=== PATIENT | female | born 1945 | race Caucasian/White ===

== ENCOUNTER 2019-04-03 16:36 | Inpatient (IN) | payer OTHER ==
[~2019-04-03] VITALS: Ht 157.5 cm; Wt 46.7 kg
[~2019-04-03 16:36] MED LIST: IBUP-786 PO; NORCO5 PO; OMEP10CA4; ZOCOR
[2019-04-03 16:52] VITALS: BP_SYST 151
[2019-04-03] MEDS ORDERED: NACL 0.9% 1,500 ML IV ONE (17:30)
[2019-04-03] MEDS ORDERED: ONDANSETRON HCL 4 MG/2 ML VIAL IVP ONE (17:45)
[2019-04-03] MEDS ORDERED: MORPHINE 4 MG/ML INJ. SYRINGE IVP ONE (17:45)
[2019-04-03] MEDS ORDERED: LORazepam 2 MG/ML VIAL (FOR ER USE) IVP ONE (17:45)
[2019-04-03 18:19] LABS: BASOPHILS # (AUTO) 0.1 K/uL (0.0-0.2); BASOPHILS % (AUTO) 0.5 % (0.0-2.0); EOSINOPHILS % (AUTO) 0.1 % (0.0-4.0); HEMOGLOBIN 12.7 g/dL (12.0-16.0); LYMPHOCYTES # (AUTO) 1.3 K/uL (1.0-5.5); LYMPHOCYTES % (AUTO) 10.3 % (20.5-51.5); MEAN CORPUSCULAR HEMOGLOBIN 31 pg (27-31); MEAN CORPUSCULAR HGB CONC 33 % (32-36); MEAN CORPUSCULAR VOLUME 93 fL (79.0-98.0); MONOCYTES # (AUTO) 0.9 K/uL (0.0-1.0); MONOCYTES % (AUTO) 7.1 % (1.7-9.3); PLATELET COUNT (AUTO) 294 K/uL (130-430); RED BLOOD CELL COUNT(AUTO) 4.17 MIL/uL (4.2-6.2); RED CELL DISTRIBUTION WIDTH 14.4 % (9.0-15.0); WHITE BLOOD COUNT (AUTO) 12.2 K/uL (4.8-10.8)
[2019-04-03 18:28] LABS: ANION GAP 13 (5-15); CALCIUM 9.9 mg/dL (8.4-11.0); CHLORIDE 98 mmol/L (98-107); CREATININE 1.16 mg/dL (0.55-1.30); GLUCOSE 113 mg/dL (70-99); POTASSIUM 3.6 mmol/L (3.5-5.1); SODIUM SERUM 131 mmol/L (136-145); UREA NITROGEN, BLOOD 15 mg/dL (8-21)
[2019-04-03 18:29] LABS: PROTHROMBIN TIME 10.7 SECS (9.5-12.5)
[2019-04-03 18:33] LABS: ALANINE AMINOTRANSFERASE 20 U/L (12-78); ALBUMIN 4.2 g/dL (3.4-4.8); ASPARTATE AMINOTRANSFERASE 19 U/L (10-37); TOTAL BILIRUBIN 0.4 mg/dL (0.0-1.0)
[2019-04-03] MEDS ORDERED: NACL 0.9% 500 ML IV ONE (19:15)
[2019-04-03] MEDS ORDERED: LEVOFLOXACIN 500 MG/D5W 100 ML IV ONE (19:15)
[2019-04-03] MEDS ORDERED: PIPERACILLIN/TAZO 3.375 GM in NS 50 ML IV ONE (19:15)
[2019-04-03] MEDS ORDERED: PIPERACILLIN/TAZOBACTAM 3.375 GM/VIAL (ZOSYN) IV ONE (19:33)
[2019-04-03] MEDS ORDERED: LORA2TAB95 PO (20:21)
[2019-04-03] MEDS ORDERED: OMEP40CA33 PO (20:21)
[2019-04-03] MEDS ORDERED: LIP20 PO (20:21)
[2019-04-03] MEDS ORDERED: TEMA15CA5 PO (20:21)
[2019-04-03 20:25] LABS: BILIRUBIN,URINE NEGATIVE (NEGATIVE); BLOOD, URINE NEGATIVE (NEGATIVE); CLARITY/URINE CLEAR (CLEAR); COLOR,URINE YELLOW (YELLOW); GLUCOSE,URINE NEGATIVE (NEGATIVE); KETONES,URINE NEGATIVE (NEGATIVE); LEUKOCYTE ESTERASE ,URINE NEGATIVE (NEGATIVE); NITRITE, URINE NEGATIVE (NEGATIVE); PH,URINE 7.5 (5.0-8.0); PROTEIN URINE NEGATIVE (NEGATIVE); UROBILINOGEN,URINE 0.2 (0.2-1.0)
[2019-04-03] MEDS: NACL 0.9% 1,000 ML IV SCH (21:20)
[2019-04-03] MEDS: LORazepam 1 MG TABLET PO SCH (21:20)
[2019-04-03 21:29] VITALS: BP_SYST 150
[2019-04-04 00:56] VITALS: BP_SYST 120
[2019-04-04] MEDS ORDERED: ACETAMINOPHEN 325 MG TABLET PO SCH (02:45)
[2019-04-04] MEDS: PANTOPRAZOLE SODIUM 40 MG TAB PO SCH (07:01)
[2019-04-04 08:02] VITALS: BP_SYST 133
[2019-04-04] MEDS: LORazepam 1 MG TABLET PO SCH ×2 (08:11→20:36)
[2019-04-04] MEDS: ATORVASTATIN 20 MG TABLET PO SCH (08:11)
[2019-04-04 08:59] LABS: BASOPHILS % (AUTO) 0.8 % (0.0-2.0); EOSINOPHILS % (AUTO) 0.6 % (0.0-4.0); HEMATOCRIT 34.8 % (36-48); HEMOGLOBIN 11.4 g/dL (12.0-16.0); LYMPHOCYTES # (AUTO) 1.3 K/uL (1.0-5.5); LYMPHOCYTES % (AUTO) 23.3 % (20.5-51.5); MEAN CORPUSCULAR HEMOGLOBIN 31 pg (27-31); MEAN CORPUSCULAR HGB CONC 33 % (32-36); MEAN CORPUSCULAR VOLUME 94 fL (79.0-98.0); MONOCYTES # (AUTO) 0.6 K/uL (0.0-1.0); NEUTROPHILS # (AUTO) 3.5 K/uL (1.8-7.7); NEUTROPHILS % (AUTO) 64.3 % (40.0-70.0); PLATELET COUNT (AUTO) 257 K/uL (130-430); RED BLOOD CELL COUNT(AUTO) 3.68 MIL/uL (4.2-6.2); RED CELL DISTRIBUTION WIDTH 14.6 % (9.0-15.0); WHITE BLOOD COUNT (AUTO) 5.4 K/uL (4.8-10.8)
[2019-04-04] MEDS ORDERED: OMEPRAZOLE 20 MG CAPSULE.DR (PriLOSEC) PO SCH (09:00)
[2019-04-04 09:10] LABS: ANION GAP 11 (5-15); CALCIUM 8.5 mg/dL (8.4-11.0); CHLORIDE 108 mmol/L (98-107); CREATININE 1.13 mg/dL (0.55-1.30); GLUCOSE 126 mg/dL (70-99); POTASSIUM 3.7 mmol/L (3.5-5.1); SODIUM SERUM 140 mmol/L (136-145); UREA NITROGEN, BLOOD 11 mg/dL (8-21)
[2019-04-04 09:17] LABS: ALANINE AMINOTRANSFERASE 19 U/L (12-78); ALBUMIN 3.2 g/dL (3.4-4.8); ASPARTATE AMINOTRANSFERASE 21 U/L (10-37); TOTAL BILIRUBIN 0.3 mg/dL (0.0-1.0)
[2019-04-04] MEDS: metroNIDAZOLE 500 mg/NS 100 ML IV SCH ×3 (09:20→20:47)
[2019-04-04] MEDS: NACL 0.9% 1,000 ML IV SCH (10:21)
[2019-04-04] MEDS: LEVOFLOXACIN 500 MG/D5W 100 ML IV SCH (10:21)
[2019-04-04 11:19] VITALS: BP_SYST 121
[2019-04-04] MEDS: ACETAMINOPHEN 325 MG TABLET PO PRN (15:22)
[2019-04-04 15:38] VITALS: BP_SYST 127
[2019-04-04] MEDS ORDERED: MORPHINE 2 MG/ML INJ. SYRINGE IVP PRN (17:00)
[2019-04-04 19:00] VITALS: BP_SYST 146
[2019-04-04] MEDS: ONDANSETRON HCL 4 MG/2 ML VIAL IVP PRN (20:38)
[2019-04-04] MEDS: TEMAZEPAM 15 MG CAPSULE PO SCH (20:38)
[2019-04-04] MEDS: MORPHINE 4 MG/ML INJ. SYRINGE IVP PRN (20:41)
[2019-04-05 00:24] VITALS: BP_SYST 143
[2019-04-05] MEDS ORDERED: LORazepam 2 MG/ML VIAL IVP SCH (00:30)
[2019-04-05] MEDS: MORPHINE 4 MG/ML INJ. SYRINGE IVP PRN ×2 (00:37→08:18)
[2019-04-05] MEDS: ONDANSETRON HCL 4 MG/2 ML VIAL IVP PRN ×4 (00:37→19:44)
[2019-04-05] MEDS: NACL 0.9% 1,000 ML IV SCH ×2 (00:51→14:45)
[2019-04-05] MEDS: metroNIDAZOLE 500 mg/NS 100 ML IV SCH ×3 (05:29→21:15)
[2019-04-05] MEDS: PANTOPRAZOLE SODIUM 40 MG TAB PO SCH (05:29)
[2019-04-05 08:06] VITALS: BP_SYST 121
[2019-04-05] MEDS: LEVOFLOXACIN 500 MG/D5W 100 ML IV SCH (08:17)
[2019-04-05] MEDS: ATORVASTATIN 20 MG TABLET PO SCH ×2 (08:22→08:24)
[2019-04-05] MEDS: LORazepam 1 MG TABLET PO SCH ×2 (08:22→20:39)
[2019-04-05] MEDS: HYDROcodone/ACETAMIN 5-325 MG TAB (NORCO/ VICODIN) PO PRN ×3 (15:40→23:45)
[2019-04-05 16:32] VITALS: BP_SYST 137
[2019-04-05] MEDS: ACETAMINOPHEN 325 MG TABLET PO PRN (16:37)
[2019-04-05] MEDS ORDERED: LORazepam 2 MG/ML VIAL IVP ONE (17:00)
[2019-04-05 20:00] VITALS: BP_SYST 135
[2019-04-05] MEDS: TEMAZEPAM 15 MG CAPSULE PO SCH (20:39)
[2019-04-06 00:27] VITALS: BP_SYST 132
[2019-04-06] MEDS: ONDANSETRON HCL 4 MG/2 ML VIAL IVP PRN ×2 (02:18→16:10)
[2019-04-06] MEDS: NACL 0.9% 1,000 ML IV SCH ×2 (03:50→20:36)
[2019-04-06] MEDS: HYDROcodone/ACETAMIN 5-325 MG TAB (NORCO/ VICODIN) PO PRN ×3 (03:50→14:58)
[2019-04-06] MEDS: metroNIDAZOLE 500 mg/NS 100 ML IV SCH ×3 (06:12→21:19)
[2019-04-06] MEDS: PANTOPRAZOLE SODIUM 40 MG TAB PO SCH (06:12)
[2019-04-06 06:54] LABS: BASOPHILS % (AUTO) 0.9 % (0.0-2.0); EOSINOPHILS # (AUTO) 0.1 K/uL (0.0-0.4); EOSINOPHILS % (AUTO) 1.1 % (0.0-4.0); HEMATOCRIT 30.4 % (36-48); LYMPHOCYTES # (AUTO) 1.7 K/uL (1.0-5.5); LYMPHOCYTES % (AUTO) 32.5 % (20.5-51.5); MEAN CORPUSCULAR HEMOGLOBIN 31 pg (27-31); MEAN CORPUSCULAR HGB CONC 33 % (32-36); MEAN CORPUSCULAR VOLUME 95 fL (79.0-98.0); MONOCYTES # (AUTO) 0.6 K/uL (0.0-1.0); MONOCYTES % (AUTO) 11.2 % (1.7-9.3); NEUTROPHILS # (AUTO) 2.8 K/uL (1.8-7.7); NEUTROPHILS % (AUTO) 54.3 % (40.0-70.0); PLATELET COUNT (AUTO) 220 K/uL (130-430); RED BLOOD CELL COUNT(AUTO) 3.21 MIL/uL (4.2-6.2); RED CELL DISTRIBUTION WIDTH 14.6 % (9.0-15.0); WHITE BLOOD COUNT (AUTO) 5.1 K/uL (4.8-10.8)
[2019-04-06 07:35] LABS: ANION GAP 7 (5-15); CHLORIDE 111 mmol/L (98-107); CREATININE 0.84 mg/dL (0.55-1.30); GLUCOSE 99 mg/dL (70-99); POTASSIUM 3.9 mmol/L (3.5-5.1); SODIUM SERUM 141 mmol/L (136-145); UREA NITROGEN, BLOOD 5 mg/dL (8-21)
[2019-04-06 07:47] LABS: ALANINE AMINOTRANSFERASE 20 U/L (12-78); ALBUMIN 2.7 g/dL (3.4-4.8); ASPARTATE AMINOTRANSFERASE 23 U/L (10-37); TOTAL BILIRUBIN 0.2 mg/dL (0.0-1.0)
[2019-04-06 07:54] VITALS: BP_SYST 133
[2019-04-06] MEDS: LEVOFLOXACIN 500 MG/D5W 100 ML IV SCH (09:10)
[2019-04-06] MEDS: LORazepam 1 MG TABLET PO SCH ×2 (09:10→20:29)
[2019-04-06] MEDS: ATORVASTATIN 20 MG TABLET PO SCH ×2 (09:11→09:50)
[2019-04-06 11:20] VITALS: BP_SYST 136
[2019-04-06] MEDS: ACETAMINOPHEN 325 MG TABLET PO PRN ×2 (12:16→21:18)
[2019-04-06 15:32] VITALS: BP_SYST 121
[2019-04-06] MEDS ORDERED: MORPHINE 2 MG/ML INJ. SYRINGE IVP SCH (18:00)
[2019-04-06] MEDS ORDERED: MORPHINE 2 MG/ML INJ. SYRINGE ONE (18:00)
[2019-04-06] MEDS ORDERED: LORazepam 2 MG/ML VIAL IVP ONE (18:45)
[2019-04-06 18:50] VITALS: BP_SYST 145
[2019-04-06] MEDS ORDERED: LORazepam 2 MG/ML VIAL ONE (18:57)
[2019-04-06 19:45] VITALS: BP_SYST 150
[2019-04-06] MEDS: TEMAZEPAM 15 MG CAPSULE PO SCH (20:29)
[2019-04-07 00:25] VITALS: BP_SYST 146
[2019-04-07] MEDS ORDERED: LORazepam 2 MG/ML VIAL IVP SCH (01:00)
[2019-04-07] MEDS: ONDANSETRON HCL 4 MG/2 ML VIAL IVP PRN (01:51)
[2019-04-07] MEDS: PANTOPRAZOLE SODIUM 40 MG TAB PO SCH (06:39)
[2019-04-07] MEDS: metroNIDAZOLE 500 mg/NS 100 ML IV SCH ×2 (06:39→13:10)
[2019-04-07 08:14] VITALS: BP_SYST 137
[2019-04-07] MEDS: LORazepam 1 MG TABLET PO SCH (08:24)
[2019-04-07] MEDS: ACETAMINOPHEN 325 MG TABLET PO PRN (08:27)
[2019-04-07] MEDS: LEVOFLOXACIN 500 MG/D5W 100 ML IV SCH (08:30)
[2019-04-07] MEDS: ATORVASTATIN 20 MG TABLET PO SCH (08:42)
[2019-04-07] MEDS ORDERED: DIATR MEGLU/DIATRIZ SOD 30 ML SOLUTION PO ONE (09:31)
[2019-04-07] MEDS: NACL 0.9% 1,000 ML IV SCH (11:21)
[2019-04-07 11:23] VITALS: BP_SYST 148
[2019-04-07] MEDS: HYDROcodone/ACETAMIN 5-325 MG TAB (NORCO/ VICODIN) PO PRN (12:07)
[2019-04-07 15:59] VITALS: BP_SYST 143
[2019-04-07] MEDS ORDERED: METR500T PO (16:05)
[2019-04-07 16:06] VITALS: BP_SYST 134
== END 2019-04-07 16:25 | disposition home or self-care (01) | DRG 372 ==
LOC: SED 16:36 → SMU 20:04
PROVIDERS: ADMIT Internal Medicine Hospice and Palliative Medicine; ATTEND Internal Medicine Hospice and Palliative Medicine
DX: A04.9 Bacterial intestinal infection, unspecified (principal); E87.2 Acidosis; R65.10 Systemic inflammatory response syndrome (SIRS) of non-infectious origin without acute organ dysfunction; K29.70 Gastritis, unspecified, without bleeding; F41.9 Anxiety disorder, unspecified; K21.9 Gastro-esophageal reflux disease without esophagitis; Z90.5 Acquired absence of kidney; Z79.899 Other long term (current) drug therapy
CPT/HCPCS: 36415; 71045; 76700-TC; 80053; 81003; 83605; 83690-TC; 84484; 85025; 85610-TC; 85730-TC; 87040-TC; 87045-TC; 87086; 87230-TC; 93005; 96361; 96365; 96368; 96375; 99291; J1956; J2060; J2270; J2405; J2543; J3490; J7030; Q9964